=== PATIENT | male | born 1980 | race Caucasian/White ===

== ENCOUNTER 2021-03-30 09:22 | Emergency (ER) | payer MEDICAID ==
[~2021-03-30] VITALS: Ht 177.8 cm; Wt 79.9 kg
[2021-03-30 09:25] VITALS: BP 157/108
[2021-03-30] MEDS ORDERED: clindamycin 150mg capsule PO ONE (09:55)
[2021-03-30] MEDS ORDERED: CLIN150C2 PO (10:02)
== END 2021-03-30 10:10 | disposition home or self-care (01) ==
LOC: ER 09:23
DX: K12.2 Cellulitis and abscess of mouth (principal); Z88.8 Allergy status to other drugs, medicaments and biological substances
CPT/HCPCS: 99283